=== PATIENT | female | born 1955 | race Caucasian/White ===

== ENCOUNTER → 2023-10-31 | Outpatient (CLI) | payer MEDICARE ==
[~2023-10-31] VITALS: Ht 165.1 cm; Wt 96.2 kg
[~2023-10-31] MED LIST: GLUCOPHAGE XR500 M1 PO; HCTZ 25MG TAB25 MG PO; KLOR-CON SPRIN10 MEQ PO; NORVASC 5MG5 MG/TAB PO; PREDFORTE10ML IO; ZOCOR 20MG20 MG PO
[2023-10-31 09:58] VITALS: BP 126/82; PULSE 80; TEMP 98.2
[2023-10-31 10:45] VITALS: BP 130/82; PULSE 79
== END ==
LOC: COL.RAD 09:18
DX: C50.411 Malignant neoplasm of upper-outer quadrant of right female breast (principal); R59.9 Enlarged lymph nodes, unspecified
CPT/HCPCS: 32108